=== PATIENT | male | born 1985 | race Caucasian/White ===

== ENCOUNTER → 2020-07-09 14:52 | Outpatient (BNVA) | payer MEDICAID, SELFPAY | PROVIDERS: PCP Nurse Practitioner Family; Referring Provider Nurse Practitioner Family; Visit Provider Orthopaedic Surgery | DX: M54.9 Dorsalgia, unspecified (principal) | CPT/HCPCS: 72114 ==

== ENCOUNTER 2020-08-26 06:00 | Outpatient (RCR) | payer MEDICAID, SELFPAY | END 2020-09-11 23:59 | disposition home or self-care (01) | LOC: MPT 06:00 | PROVIDERS: PCP Nurse Practitioner Family; Referring Provider Orthopaedic Surgery; Visit Provider Orthopaedic Surgery | DX: M54.5 Low back pain (principal); G89.29 Other chronic pain | CPT/HCPCS: 97162 ==

== ENCOUNTER → 2021-03-20 15:31 | Outpatient (BNVA) | payer MEDICAID, SELFPAY | PROVIDERS: PCP Nurse Practitioner Family; Referring Provider Orthopaedic Surgery; Visit Provider Specialist | DX: G62.89 Other specified polyneuropathies (principal); R29.898 Other symptoms and signs involving the musculoskeletal system | CPT/HCPCS: 95909 ==

== ENCOUNTER → 2021-06-10 14:11 | Outpatient (BNVA) | payer MEDICAID, SELFPAY | PROVIDERS: PCP Nurse Practitioner Family; Visit Provider Specialist | DX: G62.89 Other specified polyneuropathies (principal); R29.898 Other symptoms and signs involving the musculoskeletal system | CPT/HCPCS: 95861; 99203 ==

== ENCOUNTER 2021-09-25 11:18 | Outpatient (CLI) | payer MEDICAID, SELFPAY ==
--- NOTE | 2021-09-25 11:00 | MR_ITS ---
WS: [id number] MRI CERVICAL SPINE NONCONTRAST TECHNIQUE: Sagittal T1, T2 and STIR imaging. Axial T2, gradient, and fiesta imaging. CLINICAL INFORMATION: R29.898 - Other symptoms and signs involving the musculos... COMPARISON: None. FINDINGS: Straightening of the normal cervical lordosis. Cord signal is normal. No high-grade central canal ivis rowing. Mild disc bulging C4-C5 and C6-C7. C2-C3: Normal. C3-C4: No significant disc bulging. Spinal canal and foramen are patent. C4-C5: Mild disc osteophytic ridging. Mild RIGHT and no significant LEFT foraminal narrowing. Mild fa cet arthropathy. C5-C6: Disc osteophyte complex with endplate ridging. Mild LEFT and no significant RIGHT foraminal na rrowing. Mild facet arthropathy. Spinal canal is patent. C6-C7: Disc osteophyte complex with endplate ridging. Mild central canal stenosis. Disc osteophyte pr otrusion eccentric to the RIGHT with slight contact of the RIGHT ventral cervical cord. Mild to moder ate bilateral bony foraminal narrowing. Mild facet arthropathy. C7-T1: Mild LEFT and no significant RIGHT foraminal narrowing. Spinal canal is patent Visualized brain stem structures: Normal. Prevertebral soft tissues: Normal. MR/MR cervical spin wo con* [id number] IMPRESSION: 1. Straightening of the normal cervical lordosis. Cord signal is normal. 2. RIGHT pericentral disc osteophyte protrusion C6-C7 with mild central canal stenosis and slight contact of the RIGHT ventral cervical cord. Mild to moderat e bilateral bony foraminal narrowing with mild facet arthropathy. 3. LEFT eccentric disc osteophytic complex C5-C6 with mild LEFT foraminal narr owing. 4. Minimal disc bulging C4-C5.
--- NOTE | 2021-09-25 11:45 | MR_ITS ---
WS: [id number] MRI THORACIC SPINE WITHOUT CONTRAST TECHNIQUE: Sagittal T1, T2 and STIR imaging. Axial T2 imaging. Noncontrast imaging obtained. CLINICAL INFORMATION: G62.9 - Polyneuropathy, unspecified COMPARISON: None. FINDINGS: Mild thoracic kyphosis. No acute compression. No high-grade central canal stenosis. A few Schmorl's n odes in the mid thoracic spine. Small central disc protrusion mid thoracic spine with slight indentat ion on the ventral thoracic cord. Spinal canal remains patent. Tiny syrinx in the thoracic cord exten ding from T5 through T9. This measures approximately 1.1 mm in maximum AP dimension. Mild bilateral foraminal narrowing T8-T9, T9-T10, T10-T11, and LEFT T11-T12. Mild to moderate facet a rthropathy lower thoracic spine. Normal caliber thoracic aorta. Adrenal glands are normal. MR/MR thoracic spin wo con* [id number] IMPRESSION: 1. Mild thoracic curve. No acute compression. 2. Shallow central disc protrusion T7-T8 with indentation on the central and L EFT ventral thoracic cord. Spinal canal remains patent. 3. Small syrinx in the thoracic cord extending from T5 through T9 measuring 1. 1 mm in maximum AP dimension. Cord signal is otherwise normal. 4. Mild bony foraminal narrowing bilateral T8-T9, bilateral T9-T10, bilateral T10-T11, and LEFT T11-T12. This is worse at bilateral T10-T11. 5. Mild/moderate facet arthropathy in the lower thoracic spine.
== END 2021-09-25 11:19 | disposition home or self-care (01) ==
PROVIDERS: PCP Nurse Practitioner Family; Visit Provider Orthopaedic Surgery
DX: M54.9 Dorsalgia, unspecified (principal); G62.9 Polyneuropathy, unspecified; R29.898 Other symptoms and signs involving the musculoskeletal system
CPT/HCPCS: 72141; 72146

== ENCOUNTER → 2021-10-16 07:59 | Outpatient (BNVA) | payer MEDICAID, SELFPAY | PROVIDERS: PCP Nurse Practitioner Family; Visit Provider Physician Assistant | DX: M79.604 Pain in right leg (principal); M79.605 Pain in left leg; G62.9 Polyneuropathy, unspecified; R29.898 Other symptoms and signs involving the musculoskeletal system; M54.50 Low back pain, unspecified; M21.371 Foot drop, right foot | CPT/HCPCS: 99214; 99999 ==

== ENCOUNTER 2021-12-01 12:57 | Outpatient (CLI) | payer MEDICAID, SELFPAY ==
--- NOTE | 2021-12-01 13:12 | MR_ITS ---
WS: [id number] MRI LUMBAR SPINE NONCONTRAST HISTORY: LOWER BACK PAIN COMPARISON: 2019 TECHNIQUE: Sagittal and axial multisequence imaging is submitted. Normal lumbar alignment with no compression fractures or marrow edema. Disc spaces and vertebral body heights are well-preserved. Conus terminates normally at L1-2 disc level. L1-L2: Mild facet arthritis. No stenosis. L2-L3: Mild annular disc bulging with very mild ligamentum flavum hypertrophy and facet arthritis. Mi ld encroachment into the foramina. No high-grade stenosis. L3-L4: Mild disc bulging with moderate ligamentum flavum hypertrophy and facet arthritis. No focal di sc protrusions. Mild bilateral foraminal stenosis. Slightly greater encroachment and narrowing of the RIGHT foramen. L4-L5: Moderate annular disc bulging. Broad-based annular fissure in the LEFT foramen. Mild ligamentu m flavum and facet arthritis. Bilateral mild to moderate foraminal stenosis. L5-S1: Mild annular disc bulging and osteophytic ridging. No significant stenosis. Paravertebral soft tissues are normal. MR/MR lumbar spine wo con* [id number] IMPRESSION: 1. Mild to moderate bilateral foraminal stenosis at L4-5. Disc and osteophyte encroachment into the foramen. 2. Broad-based annular fissure LEFT foramen at L4-5. 3. Mild encroachment into the foramina at L2-3 and L3-4 by osteophyte, disc an d facet disease. 4. Similar foraminal narrowing and encroachment noted on 08/14/2019.
== END 2021-12-01 12:58 | disposition home or self-care (01) ==
LOC: RAD 13:01
PROVIDERS: PCP Nurse Practitioner Family; Visit Provider Physician Assistant
DX: M48.061 Spinal stenosis, lumbar region without neurogenic claudication (principal)
CPT/HCPCS: 72148

== ENCOUNTER → 2021-12-02 13:05 | Outpatient (BNVA) | payer MEDICAID, SELFPAY | PROVIDERS: PCP Nurse Practitioner Family; Visit Provider Physician Assistant | DX: M54.50 Low back pain, unspecified (principal); M21.371 Foot drop, right foot; M79.604 Pain in right leg; M79.605 Pain in left leg; G62.9 Polyneuropathy, unspecified; R29.898 Other symptoms and signs involving the musculoskeletal system | CPT/HCPCS: 99213; 99214 ==

== ENCOUNTER → 2022-11-30 15:55 | Outpatient (BNVA) | payer MEDICAID, SELFPAY | PROVIDERS: PCP Nurse Practitioner Family; Referring Provider Nurse Practitioner Family; Visit Provider Internal Medicine | DX: E11.9 Type 2 diabetes mellitus without complications (principal) | CPT/HCPCS: 36415; 80053; 80061; 83036; 84681; 86337; 86341 ==

== ENCOUNTER → 2023-02-01 12:48 | Outpatient (BNVA) | payer MEDICAID, SELFPAY | PROVIDERS: PCP Nurse Practitioner Family; Referring Provider Specialist; Visit Provider Specialist | DX: R26.9 Unspecified abnormalities of gait and mobility; M21.371 Foot drop, right foot; G43.711 Chronic migraine without aura, intractable, with status migrainosus; F43.10 Post-traumatic stress disorder, unspecified; E11.42 Type 2 diabetes mellitus with diabetic polyneuropathy; Z79.4 Long term (current) use of insulin | CPT/HCPCS: 99214 ==

== ENCOUNTER → 2023-03-04 08:57 | Outpatient (BNVA) | payer MEDICAID, SELFPAY | PROVIDERS: PCP Nurse Practitioner Family; Visit Provider Internal Medicine | DX: E78.2 Mixed hyperlipidemia (principal); E10.9 Type 1 diabetes mellitus without complications; Z79.4 Long term (current) use of insulin; Z79.84 Long term (current) use of oral hypoglycemic drugs | CPT/HCPCS: 99214 ==

== ENCOUNTER → 2023-03-10 09:24 | Outpatient (BNVA) | payer MEDICAID, SELFPAY | PROVIDERS: PCP Nurse Practitioner Family; Referring Provider Specialist; Visit Provider Anesthesiology Pain Medicine | DX: M51.16 Intervertebral disc disorders with radiculopathy, lumbar region; M50.90 Cervical disc disorder, unspecified, unspecified cervical region; G43.711 Chronic migraine without aura, intractable, with status migrainosus; G62.89 Other specified polyneuropathies; M21.371 Foot drop, right foot; G62.9 Polyneuropathy, unspecified | CPT/HCPCS: 99205 ==

== ENCOUNTER → 2023-04-01 14:14 | Outpatient (BNVA) | payer MEDICAID, SELFPAY | PROVIDERS: PCP Nurse Practitioner Family; Visit Provider Anesthesiology Pain Medicine | DX: M54.16 Radiculopathy, lumbar region (principal); M79.604 Pain in right leg; M79.605 Pain in left leg | CPT/HCPCS: 64483; 64484; G0463; J1100; J3490 ==

== ENCOUNTER → 2023-04-15 10:54 | Outpatient (BNVA) | payer MEDICAID, SELFPAY | PROVIDERS: PCP Nurse Practitioner Family; Visit Provider Anesthesiology Pain Medicine | DX: M51.16 Intervertebral disc disorders with radiculopathy, lumbar region; M50.90 Cervical disc disorder, unspecified, unspecified cervical region; F43.10 Post-traumatic stress disorder, unspecified; G43.711 Chronic migraine without aura, intractable, with status migrainosus; G62.89 Other specified polyneuropathies; M21.371 Foot drop, right foot; G62.9 Polyneuropathy, unspecified | CPT/HCPCS: 99214 ==

== ENCOUNTER → 2023-06-02 12:04 | Outpatient (BNVA) | payer MEDICARE, MEDICAID, SELFPAY | PROVIDERS: PCP Nurse Practitioner Family; Visit Provider Specialist | DX: R29.90 Unspecified symptoms and signs involving the nervous system (principal); R26.9 Unspecified abnormalities of gait and mobility; M21.371 Foot drop, right foot; G62.89 Other specified polyneuropathies; G43.711 Chronic migraine without aura, intractable, with status migrainosus; F43.10 Post-traumatic stress disorder, unspecified; M54.50 Low back pain, unspecified; M79.604 Pain in right leg; M79.605 Pain in left leg; M51.16 Intervertebral disc disorders with radiculopathy, lumbar region; M50.90 Cervical disc disorder, unspecified, unspecified cervical region | CPT/HCPCS: 99214 ==

== ENCOUNTER → 2023-06-09 09:45 | Outpatient (BNVA) | payer MEDICARE, MEDICAID, SELFPAY | PROVIDERS: PCP Nurse Practitioner Family; Visit Provider Internal Medicine | DX: E78.2 Mixed hyperlipidemia (principal); E10.9 Type 1 diabetes mellitus without complications; Z79.4 Long term (current) use of insulin; Z79.84 Long term (current) use of oral hypoglycemic drugs | CPT/HCPCS: 99214 ==

== ENCOUNTER 2023-09-07 12:50 | Outpatient (CLI) | payer MEDICARE, MEDICAID, SELFPAY ==
[2023-09-07 13:26] LABS: Alanine Aminotransferase 36 U/L (0-41); Albumin Level 4.7 g/dL (3.5-5.2); Alkaline Phosphatase 63 U/L (40-130); Anion Gap 16.3 (5-19); Aspartate Amino Transferase 33 U/L (0-40); Blood Urea Nitrogen 8 mg/dL (6-20); Calcium 10.2 mg/dL (8.5-10.5); Carbon Dioxide 26 mmol/L (22-29); Chloride 99 mmol/L (98-107); Chol HDL Ratio 5.74 mg/dL (1.0-5.00); Cholesterol 270 mg/dL (0-200); Globulin 2.8 g/dL (1.3-4.6); Glomerular Filtration Rate 93.9 mL/min (90-130); Glucose 133 mg/dL (65-115); HDL Cholesterol 47 mg/dL (60-100); LDL Cholesterol Calculated 146 mg/dL (50-129); LDL HDL Ratio 3.11 RATIO (0.00-3.22); Osmolality Calculated 284 mOsm/kg (285-295); Potassium 4.3 mmol/L (3.5-5.1); Sodium 137 mmol/L (136-145); Total Bilirubin 0.2 mg/dL (0.15-1.2); Total Protein 7.5 g/dL (6.6-8.7); Triglycerides 383 mg/dL (0-150)
[2023-09-07 13:34] LABS: Creatinine Urine, Random 39 mg/dL (39-259); Microalbum Creatinine Ratio Ur 26 mg/dL (0-20); Microalbumin Random Urine 1 ug/dL (0-20)
[2023-09-07 13:35] LABS: Estmated Average Glucose 146; Hemoglobin A1C 6.7 % (4.0-6.0)
== END 2023-09-07 12:51 | disposition home or self-care (01) ==
LOC: LAB 12:51
PROVIDERS: PCP Nurse Practitioner Family; Visit Provider Internal Medicine
DX: E10.9 Type 1 diabetes mellitus without complications (principal); E78.2 Mixed hyperlipidemia
CPT/HCPCS: 36415; 80053; 80061; 82044; 83036

== ENCOUNTER → 2023-11-24 12:31 | Outpatient (BNVA) | payer MEDICAID, MEDICARE, SELFPAY | PROVIDERS: PCP Nurse Practitioner Family; Visit Provider Specialist | DX: R29.90 Unspecified symptoms and signs involving the nervous system (principal); R26.9 Unspecified abnormalities of gait and mobility; M21.371 Foot drop, right foot; G62.89 Other specified polyneuropathies; G43.711 Chronic migraine without aura, intractable, with status migrainosus; F43.10 Post-traumatic stress disorder, unspecified; M54.50 Low back pain, unspecified; M79.604 Pain in right leg; M79.605 Pain in left leg; M51.16 Intervertebral disc disorders with radiculopathy, lumbar region; M50.90 Cervical disc disorder, unspecified, unspecified cervical region; G95.0 Syringomyelia and syringobulbia; E11.42 Type 2 diabetes mellitus with diabetic polyneuropathy; Z79.84 Long term (current) use of oral hypoglycemic drugs; Z79.4 Long term (current) use of insulin | CPT/HCPCS: 99213; 99214 ==

== ENCOUNTER → 2023-12-17 11:22 | Outpatient (BNVA) | payer MEDICARE, MEDICAID, SELFPAY | PROVIDERS: PCP Nurse Practitioner Family; Visit Provider Internal Medicine | DX: E10.9 Type 1 diabetes mellitus without complications (principal); E78.2 Mixed hyperlipidemia; Z79.4 Long term (current) use of insulin; Z79.84 Long term (current) use of oral hypoglycemic drugs | CPT/HCPCS: 99214 ==

== ENCOUNTER 2024-03-15 09:22 | Outpatient (CLI) | payer MEDICARE, MEDICAID, SELFPAY ==
[2024-03-15 10:42] LABS: Estmated Average Glucose 157; Hemoglobin A1C 7.1 % (4.0-6.0)
[2024-03-15 10:45] LABS: Alanine Aminotransferase 26 U/L (0-41); Albumin Level 4.4 g/dL (3.5-5.2); Alkaline Phosphatase 75 U/L (40-130); Anion Gap 12.3 (5-19); Aspartate Amino Transferase 21 U/L (0-40); Blood Urea Nitrogen 10 mg/dL (6-20); Calcium 9.3 mg/dL (8.5-10.5); Carbon Dioxide 27 mmol/L (22-29); Chloride 101 mmol/L (98-107); Chol HDL Ratio 7.11 mg/dL (1.0-5.00); Cholesterol 270 mg/dL (0-200); Globulin 2.8 g/dL (1.3-4.6); Glomerular Filtration Rate 93.9 mL/min (90-130); Glucose 186 mg/dL (65-115); HDL Cholesterol 38 mg/dL (60-100); LDL Cholesterol Calculated 177 mg/dL (50-129); LDL HDL Ratio 4.66 RATIO (0.00-3.22); Osmolality Calculated 286 mOsm/kg (285-295); Potassium 4.3 mmol/L (3.5-5.1); Sodium 136 mmol/L (136-145); Total Bilirubin 0.2 mg/dL (0.15-1.2); Total Protein 7.2 g/dL (6.6-8.7); Triglycerides 277 mg/dL (0-150)
[2024-03-15 10:48] LABS: Creatinine Urine, Random 123 mg/dL (39-259); Microalbum Creatinine Ratio Ur 8 mg/dL (0-20); Microalbumin Random Urine 1 ug/dL (0-20)
== END 2024-03-15 09:23 | disposition home or self-care (01) ==
PROVIDERS: PCP Nurse Practitioner Family; Visit Provider Internal Medicine
DX: E78.2 Mixed hyperlipidemia (principal); E10.9 Type 1 diabetes mellitus without complications
CPT/HCPCS: 36415; 80053; 80061; 82044; 83036

== ENCOUNTER → 2024-03-22 11:25 | Outpatient (BNVA) | payer MEDICARE, MEDICAID, SELFPAY | PROVIDERS: PCP Nurse Practitioner Family; Visit Provider Internal Medicine | DX: E10.9 Type 1 diabetes mellitus without complications (principal); E78.2 Mixed hyperlipidemia; Z79.4 Long term (current) use of insulin; Z79.84 Long term (current) use of oral hypoglycemic drugs | CPT/HCPCS: 99214 ==

== ENCOUNTER → 2024-05-25 10:30 | Outpatient (BNVA) | payer MEDICARE, MEDICAID, SELFPAY | PROVIDERS: PCP Nurse Practitioner Family; Visit Provider Specialist | DX: R29.90 Unspecified symptoms and signs involving the nervous system (principal); R26.9 Unspecified abnormalities of gait and mobility; M21.371 Foot drop, right foot; G62.89 Other specified polyneuropathies; G43.711 Chronic migraine without aura, intractable, with status migrainosus; F43.10 Post-traumatic stress disorder, unspecified; M79.604 Pain in right leg; M79.605 Pain in left leg; M51.16 Intervertebral disc disorders with radiculopathy, lumbar region; M50.90 Cervical disc disorder, unspecified, unspecified cervical region; G95.0 Syringomyelia and syringobulbia | CPT/HCPCS: 99213; 99214 ==

== ENCOUNTER 2024-07-12 14:17 | Outpatient (CLI) | payer MEDICARE, MEDICAID, SELFPAY ==
[2024-07-12 15:21] LABS: Alanine Aminotransferase 33 U/L (0-41); Albumin Level 4.7 g/dL (3.5-5.2); Alkaline Phosphatase 79 U/L (40-130); Aspartate Amino Transferase 25 U/L (0-40); Blood Urea Nitrogen 11 mg/dL (6-20); Calcium 9.9 mg/dL (8.5-10.5); Carbon Dioxide 21 mmol/L (22-29); Chloride 100 mmol/L (98-107); Chol HDL Ratio 6.29 mg/dL (1.0-5.00); Cholesterol 239 mg/dL (0-200); Globulin 2.7 g/dL (1.3-4.6); Glomerular Filtration Rate 107.1 mL/min (90-130); Glucose 177 mg/dL (65-115); HDL Cholesterol 38 mg/dL (60-100); LDL Cholesterol Calculated 132 mg/dL (50-129); LDL HDL Ratio 3.47 RATIO (0.00-3.22); Osmolality Calculated 286 mOsm/kg (285-295); Sodium 136 mmol/L (136-145); Total Bilirubin 0.2 mg/dL (0.15-1.2); Total Protein 7.4 g/dL (6.6-8.7); Triglycerides 346 mg/dL (0-150)
[2024-07-12 15:27] LABS: Anion Gap 19.1 (5-19); Potassium 4.1 mmol/L (3.5-5.1)
[2024-07-12 15:29] LABS: Creatinine Urine, Random 26 mg/dL (39-259); Microalbum Creatinine Ratio Ur 38 mg/dL (0-20); Microalbumin Random Urine 1 ug/dL (0-20)
[2024-07-12 15:31] LABS: Estmated Average Glucose 163; Hemoglobin A1C 7.3 % (4.0-6.0)
== END 2024-07-12 14:18 | disposition home or self-care (01) ==
PROVIDERS: PCP Nurse Practitioner Family; Visit Provider Internal Medicine
DX: E78.2 Mixed hyperlipidemia (principal); E10.9 Type 1 diabetes mellitus without complications
CPT/HCPCS: 36415; 80053; 80061; 82044; 83036